=== PATIENT | male | born 1960 | race Caucasian/White ===

== ENCOUNTER 2017-10-18 22:45 | Emergency (ER) | payer OTHER ==
[2017-10-18 23:29] LABS: ADD MAN DIFF? NO
[2017-10-18 23:30] LABS: BASO % 1 % (0-3); EOS # 0.2 x10^3/uL (0.0-0.7); EOS % 3 % (0-3); HEMATOCRIT 41.8 % (39.0-53.0); LYMPH # 3.3 x10^3/uL (1.0-4.8); LYMPH % 41 % (24-48); MEAN CORPUSCULAR HEMOGLOBIN 27 pg (25-35); MEAN CORPUSCULAR HGB CONC 34 g/dL (31-37); MEAN CORPUSCULAR VOLUME 80 fL (79-100); MONO % 12 % (0-9); NEUT # 3.6 x10^3uL (1.8-7.7); NEUT % 44 % (31-73); PLATELET COUNT 232 x10^3/uL (140-400); RED BLOOD COUNT 5.23 x10^6/uL (4.30-5.70); RED CELL DISTRIBUTION WIDTH 15.9 % (11.5-14.5); WHITE BLOOD COUNT 8.1 x10^3/uL (4.0-11.0)
[2017-10-18] MEDS: ORPHENADRINE CITRATE 60 MG/2 ML VIAL. IV (23:35)
[2017-10-18] MEDS: IV NORMAL SALINE 1000ML BAG 1,000 ML IV (23:35)
[2017-10-18] MEDS: fentaNYL PF VIAL 100 MCG/2 ML VIAL IV (23:35)
[2017-10-18 23:39] LABS: ANION GAP 9 (6-14); BLOOD UREA NITROGEN 18 mg/dL (8-26); BUN/CREATININE RATIO 20 (6-20); CALCIUM 9.5 mg/dL (8.5-10.1); CARBON DIOXIDE 27 mmol/L (21-32); CHLORIDE 100 mmol/L (98-107); CREATININE 0.9 mg/dL (0.7-1.3); GFR 87.6; GLUCOSE 358 mg/dL (70-99); POTASSIUM 3.6 mmol/L (3.5-5.1); SODIUM 136 mmol/L (136-145)
[2017-10-18 23:41] LABS: ETHANOL < 10 mg/dL (0-10)
[2017-10-18 23:42] LABS: PARTIAL THROMBOPLASTIN TIME 24 SEC (24-38)
[2017-10-18 23:45] LABS: ALBUMIN 3.9 g/dL (3.4-5.0); ALBUMIN/GLOBULIN RATIO 1.3 (1.0-1.7); ALK PHOS 35 U/L (46-116); ALT (SGPT) 28 U/L (16-63); AST (SGOT) 13 U/L (15-37); LIPASE 179 U/L (73-393); MAGNESIUM 1.3 mg/dL (1.8-2.4); TOTAL BILIRUBIN 0.4 mg/dL (0.2-1.0)
[2017-10-19] MEDS: fentaNYL PF VIAL 100 MCG/2 ML VIAL IV (00:25)
[2017-10-19 00:31] LABS: BILIRUBIN,URINE NEGATIVE (NEG); CLARITY,URINE CLEAR; COLOR,URINE YELLOW; GLUCOSE,URINE >=1000 mg/dL (NEG); NITRITE,URINE NEGATIVE (NEG); PH,URINE 5.5; PROTEIN,URINE NEGATIVE (NEG-TRACE); UROBILINOGEN,URINE 0.2 mg/dL (0.2 mg/dL)
[2017-10-19 00:36] LABS: BACTERIA,URINE 0 /HPF (0-FEW); BARBITURATES NEG (NEG); BENZODIAZEPINES NEG (NEG); CANNABINOIDS NEG (NEG); COCAINE NEG (NEG); METHADONE NEG (NEG); OPIATES POS (NEG); PHENCYCLIDINE NEG (NEG); RBC,URINE 0 /HPF (0-2); SQUAMOUS EPITHELIAL CELL,UR OCC /LPF; WBC,URINE 0 /HPF (0-4)
[2017-10-19 00:39] LABS: AMPHETAMINE/METHAMPHETAMINE NEG (NEG); ETHANOL, URINE NEG (NEG)
[2017-10-19] MEDS: MAGNESIUM SULFATE 2GM 50 ML IV (01:00)
[2017-10-19] MEDS: INSULIN REGULAR 100 UNIT/ML 3ML VIAL. SQ (01:05)
[2017-10-19] MEDS: MORPHINE SULFATE 4 MG/ML DISP.SYRIN. IV (01:28)
== END 2017-10-19 02:05 | disposition home or self-care (01) ==
LOC: ER 10-19 02:05
DX: S20.219A Contusion of unspecified front wall of thorax, initial encounter (principal); M54.5 Low back pain; E11.65 Type 2 diabetes mellitus with hyperglycemia; E83.42 Hypomagnesemia; Z95.5 Presence of coronary angioplasty implant and graft; Z88.0 Allergy status to penicillin; Z88.5 Allergy status to narcotic agent; Z88.8 Allergy status to other drugs, medicaments and biological substances; W10.8XXA Fall (on) (from) other stairs and steps, initial encounter; Y93.89 Activity, other specified; Y99.8 Other external cause status; Y92.89 Other specified places as the place of occurrence of the external cause
CPT/HCPCS: 36415; 70450; 71250; 72125; 74176; 80053; 80307; 81001; 83690; 83735; 85025; 85610; 85730; 96361; 96372; 96374; 96375; 96376; 99285-25; G0480; J1815; J2270; J2360; J3010; J7030